=== PATIENT | female | born 1980 | race Caucasian/White ===

== ENCOUNTER 2018-10-08 06:12 | Inpatient (IN) ==
[2018-10-08] MEDS ORDERED: BUTORPHANOL 2 MG/ML VIAL IV PRN (06:49)
[2018-10-08] MEDS ORDERED: MEPERIDINE 50 MG/1 ML VIAL IV PRN (06:49)
[2018-10-08] MEDS ORDERED: ONDANSETRON 4 MG/2 ML VIAL IV PRN ×2 (06:49→21:29)
[2018-10-08] MEDS ORDERED: OXYTOCIN/LR 20 UNIT/1,000 ML BAG IV SCH (07:00)
[2018-10-08 07:05] LABS: Basophils # 0.1 10*3/uL (0.0-0.2); Basophils % 0.4 % (0.0-0.8); Eosinophils # 0.1 10*3/uL (0.0-0.87); Eosinophils % 0.7 % (0.00-10.9); Hematocrit 33.8 VOL% (35.7-47.0); Hemoglobin 10.9 GM/DL (12.0-16.0); Immature Granulocytes % 0.8 %; Immature Granulocytes Absolute 0.09 #; Lymphocytes # 1.9 10*3/uL (1.4-4.0); Lymphocytes % 15.9 % (21.3-54.2); Mean Corpuscular HGB Conc 32.2 GM/DL (32-36); Mean Corpuscular Volume 87.3 FL (87-102); Monocytes % 7.9 % (1.7-12.7); Neutrophils % 74.3 % (38.7-73.9); Platelet Count 207 T/CUMM (130-400); Red Blood Count 3.87 MC/CUMM (3.8-5.5); Red Cell Distribution Width 13.8 % (9.3-17.3)
[2018-10-08 07:25] LABS: Albumin 2.5 G/DL (3.4-5.0); Bilirubin,Total 1.2 MG/DL (0.2-1.0); Calcium 8.5 MG/DL (8.5-10.1); Osmolality,Calculated 275.4 MOS/KG (273-304)
[2018-10-08] MEDS: LACTATED RINGERS 1,000 ML IV SCH ×3 (07:46→19:18)
[2018-10-08] MEDS ORDERED: ePHEDrine 50 MG/ML AMP IV PRN (13:16)
[2018-10-08] MEDS ORDERED: NALOXONE 0.4 MG/ML VIAL IV PRN (13:16)
[2018-10-08] MEDS ORDERED: CITRIC ACID/SODIUM CITRATE 30 ML UDCUP PO ONE (13:16)
[2018-10-08] MEDS ORDERED: diphenhydrAMINE 50 MG/1 ML VIAL IV PRN ×2 (13:16)
[2018-10-08] MEDS ORDERED: ONDANSETRON 4 MG/2 ML VIAL IV ONE (13:16)
[2018-10-08] MEDS ORDERED: hydrOXYzine HCL 25 MG/1 ML VIAL IM PRN (13:16)
[2018-10-08] MEDS ORDERED: PROMETHAZINE 25 MG/1 ML VIAL IM ONE (13:16)
[2018-10-08] MEDS ORDERED: FAMOTIDINE 20 MG/2 ML VIAL IV ONE (13:16)
[2018-10-08] MEDS ORDERED: fentaNYL 2 MCG/ROPIV 0.2% EPID 100 ML EPIDURAL SCH (13:30)
[2018-10-08 15:46] LABS: Apearance,Urine CLEAR (Clear); Bilirubin,Urine Negative (Negative); Blood, Urine Negative (Negative); Glucose,Urine (UA) Negative (Negative); Ketones,Urine 80 mg/dL (Negative); Mucus,Urine Occasional /LPF (Occasional); Nitrite,Urine Negative (Negative); Protein,Urine Negative; Urine Color Yellow (Yellow); Urine Specific Gravity 1.014 (1.001-1.035); Urine Urobilinogen < 2.0 EU/DL (0.2-1.0); WBC,Urine <1 /HPF (0-6)
[2018-10-08] MEDS ORDERED: OXYTOCIN 10 UNIT/ML VIAL ONE (20:00)
[2018-10-08] MEDS ORDERED: OXYTOCIN/LR 30 UNIT/1,000 ML BAG IV ONE ×2 (20:00→21:02)
[2018-10-08] MEDS ORDERED: miSOPROStol 200 MCG TABLET ONE (20:00)
[2018-10-08] MEDS ORDERED: CARBOPROST TROMETHAMINE 250 MCG/ML AMP IM ONE ×2 (20:01→21:02)
[2018-10-08] MEDS ORDERED: METHYLERGONOVINE 0.2 MG/1 ML AMP ONE (20:01)
[2018-10-08] MEDS ORDERED: SODIUM CHLORIDE 0.9% 0 ML IV ONE (20:02)
[2018-10-08] MEDS ORDERED: TRANEXAMIC ACID 1,000 MG/10 ML VIAL ONE (20:02)
[2018-10-08] MEDS ORDERED: miSOPROStol 200 MCG TABLET PO ONE (21:02)
[2018-10-08] MEDS ORDERED: METHYLERGONOVINE 0.2 MG/1 ML AMP IM ONE (21:02)
[2018-10-08] MEDS ORDERED: DIPH/TET/ACEL PERT BOOSTER VACCINE 0.5 ML VIAL IM ONE (21:29)
[2018-10-08] MEDS ORDERED: oxyCODONE/ACETAMINOPHEN 5-325 MG TABLET PO PRN ×2 (21:29)
[2018-10-08] MEDS ORDERED: MEASLES/MUMPS/RUBELLA VACCINE 0.5 ML VIAL SUBCUT ONE (21:29)
[2018-10-08] MEDS ORDERED: WITCH HAZEL PADS 100/JAR TOP PRN (21:29)
[2018-10-08] MEDS ORDERED: HYDROCORTISONE 2.5% RECTAL CREAM 30 GM TUBE TOP PRN (21:29)
[2018-10-08] MEDS ORDERED: RHO(D) IMMUNE GLOBULIN 300 MCG SYRINGE IM ONE (21:29)
[2018-10-08] MEDS ORDERED: BISACODYL 10 MG SUPP RECTAL PRN (21:29)
[2018-10-08] MEDS ORDERED: ACETAMINOPHEN 325 MG TABLET PO PRN (21:29)
[2018-10-08] MEDS ORDERED: BENZOCAINE 20%/MENTHOL 0.5% SPRAY 56 GM CAN TOP PRN (21:29)
[2018-10-08] MEDS ORDERED: OXYTOCIN/LR 20 UNIT/1,000 ML BAG IV ONE (21:29)
[2018-10-08] MEDS ORDERED: LANOLIN 50% CREAM 0.3 OZ TUBE TOP PRN (21:29)
[2018-10-08] MEDS: IBUPROFEN 800 MG TABLET PO PRN (22:04)
[2018-10-09] MEDS: IBUPROFEN 800 MG TABLET PO PRN ×2 (03:47→14:30)
[2018-10-09 04:55] LABS: Basophils % 0.2 % (0.0-0.8); Eosinophils % 0.1 % (0.00-10.9); Hematocrit 31.2 VOL% (35.7-47.0); Immature Granulocytes % 0.8 %; Immature Granulocytes Absolute 0.17 #; Lymphocytes # 1.3 10*3/uL (1.4-4.0); Lymphocytes % 6.3 % (21.3-54.2); Mean Corpuscular HGB Conc 32.1 GM/DL (32-36); Mean Corpuscular Volume 87.9 FL (87-102); Mean Platelet Volume 11.5 FL (9.6-12.0); Monocytes % 5.9 % (1.7-12.7); Neutrophils % 86.7 % (38.7-73.9); Platelet Count 177 T/CUMM (130-400); Red Blood Count 3.55 MC/CUMM (3.8-5.5); Red Cell Distribution Width 13.6 % (9.3-17.3); White Blood Count 20.8 T/CUMM (4-12)
[2018-10-09 05:22] LABS: Band Neutrophils 1 % (0-10); Hypochromasia 1+; Lymphocytes 5 % (20-55); Platelet Estimate Adequate; Segmented Neutrophils 90 % (50-85); Total Cells Counted 100
[2018-10-09] MEDS: METHYLERGONOVINE 0.2 MG TABLET PO SCH ×4 (06:10→22:37)
[2018-10-09] MEDS: DOCUSATE SODIUM 100 MG CAPSULE PO SCH ×2 (10:03→21:17)
[2018-10-10] MEDS: METHYLERGONOVINE 0.2 MG TABLET PO SCH (06:03)
[2018-10-10 08:50] VITALS: BP 106/72
[2018-10-10] MEDS: DOCUSATE SODIUM 100 MG CAPSULE PO SCH (09:57)
[2018-10-10] MEDS ORDERED: MEASLES/MUMPS/RUBELLA VACCINE 0.5 ML VIAL SUBCUT ONE (12:08)
== END 2018-10-10 13:53 | disposition home or self-care (01) | DRG 806 ==
LOC: N.LDOUT 06:12 → N.LD 06:13 → N.OB 23:00
PROVIDERS: ADMIT Obstetrics & Gynecology; ATTEND Obstetrics & Gynecology